=== PATIENT | male | born 1955 | race Caucasian/White ===

== ENCOUNTER 2022-03-19 09:55 | Emergency (ER) | payer MEDICARE, BC, SELFPAY ==
[2022-03-19 10:02] VITALS: BP 227/109; BMI 30.5
--- NOTE | 2022-03-19 10:03 | CTR_ITS ---
PROCEDURE INFORMATION: Exam: CT Abdomen And Pelvis Without Contrast Exam date and time: 03/19/2022 10:49 AM Age: 66 years old Clinical indication: Abdominal pain; Flank; Left; Prior surgery; Surgery type: Gb; Additional info: Concern for kidney stone TECHNIQUE: Imaging protocol: Computed tomography of the abdomen and pelvis without contrast. Radiation optimization: All CT scans at this facility use at least one of these dose optimization techniques: automated exposure control; mA and/or kV adjustment per patient size (includes targeted exams where dose is matched to clinical indication); or iterative reconstruction. COMPARISON: US gall bladder [id number] 05/31/2015 10:37 AM RADIATION DOSE METRICS: Total DLP (mGy-cm): 1965.82 FINDINGS: Diaphragm: Small sliding hiatal hernia. Liver: Fatty liver. Gallbladder and bile ducts: Cholecystectomy. Normal bile ducts. Pancreas: Normal. No ductal dilation. Spleen: Normal. No splenomegaly. Adrenal glands: Normal. No mass. Kidneys and ureters: There is a 4.5 mm calculus in a left upper pole renal calyx. There is minimal left hydronephrosis and hydroureter but no ureteral calculi are seen. This could be due to a recently passed stone. There is a benign-appearing 2 cm cyst in the superior pole of the left kidney. The right kidney is unremarkable. Stomach and bowel: Unremarkable. No obstruction. No mucosal thickening. Appendix: No evidence of appendicitis. Intraperitoneal space: Unremarkable. No free air. No significant fluid collection. Vasculature: There is moderate calcification of the aorta and iliac arteries. There is no abdominal aortic aneurysm. Lymph nodes: Unremarkable. No enlarged lymph nodes. Urinary bladder: Unremarkable as visualized. Reproductive: The prostate is enlarged to a diameter of 5.8 cm. Bones/joints: Unremarkable. No acute fracture. Soft tissues: Unremarkable. CT/CT kidney stone [id number] IMPRESSION: 1. Left nephrolithiasis. 2. There is minimal left hydronephrosis and left hydroureter but no ureteral calculi are seen. This could be due to a recently passed stone. 3. Prostatic hypertrophy. 4. Fatty liver. COMMENTS: Consistent with the [employer]'s Incidental Findings Committee white paper (J Am Sonu Radiol 2018): Any incidental renal lesion less than 1 cm or classified as too small to characterize, or any incidental cystic renal lesion characterized as simple-appearing, is likely benign. No follow-up imaging is recommended for these lesions per consensus recommendations based on imaging criteria.
[2022-03-19 10:08] VITALS: BP 216/102; PULSE 73; RESP 17; O2SAT 100
--- NOTE | 2022-03-19 10:16 | ED_ITS ---
HPI - Abdominal Pain General: Chief Complaint: Abdominal Pain Stated Complaint: abd pain Time Seen by Provider: 03/19/22 10:03 History of Present Illness: Patient comes in with abdominal pain. States that started this morning, left lower quadrant, sharp, waxes and wanes, with episodes of severe pain, radiates into his left groin. Denies fever, diarrhea. States he has been nauseated secondary to the pain. Denies any history of kidney stones. Associated Symptoms: Reports nausea; Denies dysuria, fever(s) and vomiting Review of Systems Const: Denies: fever(s) or body aches Eyes: Denies: change in vision or blurry vision ENMT: Denies: throat pain or odynophagia Card: Denies: chest pain or palpitations Resp: Denies: dyspnea or productive cough GI: Reports: abdominal pain and nausea; Denies: vomiting : Denies: flank pain or dysuria Musc: Denies: neck pain or back pain Skin/Breast: Denies: rash or pruritus Neuro: Denies: headache(s) or numbness in extremities Psych: Denies: anxiety or change in appetite Endo: Denies: polyuria or excessive sweating PFSH ED PFSH: Medical History (Updated 03/19/22 @ 12:01 by Luis Almonte MD) Open-angle glaucoma Social History (Updated 06/24/20 @ 13:57 by Dorothy Pool LPN) Smoking and tobacco status: never smoked Alcohol intake: never Physical Exam Const: COMMON NORMALS: no acute distress, patient oriented x3, healthy appearing and alert HENMT: COMMON NORMALS: normocephalic and atraumatic HEAD & SCALP: normocephalic and atraumatic Eye: COMMON NORMALS: Equal, round and reactive pupils present and EOMs intact bilaterally PUPIL: Yes Equal, round and reactive pupils present Neck/C-Spine: COMMON NORMALS: full ROM and supple Resp: COMMON NORMALS: normal respiratory effort, No retractions and No use of accessory muscles Cardio: COMMON NORMALS: regular rate and regular rhythm RATE: regular rate RHYTHM: regular rhythm GI: COMMON NORMALS: Normal to inspection, nondistended, normoactive bowel sounds present and Soft to palpation PALPATION: Yes Soft to palpation OTHER: Left-sided abdominal tenderness to palpation Back/Pelvis: COMMON NORMALS: thoracic and lumbar spine normal to inspection and no thoracic nor lumbar tenderness Extremity: COMMON NORMALS: normal to inspection and full ROM Neuro: COMMON NORMALS: patient oriented x3 SENSORIUM/ORIENTATION: Yes alert Psych: COMMON NORMALS: mental status grossly normal and cooperative Skin: COMMON NORMALS: no rashes or lesions noted and no wounds GENERAL SKIN EXAM: no rashes or lesions noted Course Vital Signs: Vital signs: Vital Signs Pulse Rate 73 03/19/22 10:08 Respiratory Rate 17 03/19/22 10:08 Blood Pressure 216/102 03/19/22 10:08 Pulse Oximetry 100 03/19/22 10:08 MDM - Abdominal Pain Medical Decision Making Patient comes in with abdominal pain. States that started this morning, left lower quadrant, sharp, waxes and wanes, with episodes of severe pain, radiates into his left groin. Denies fever, diarrhea. States he has been nauseated secondary to the pain. Denies any history of kidney stones. On physical exam he does have some left sided abdominal tenderness to palpation. Will check labs, CT renal, give IV fluids, treat pain with IV Toradol, treat nausea with IV antiemetics, and reassess. On reassessment I talked to the patient about the test results. He states he is feeling much better after the Toradol. Will discharge home at this time with precautions to return for worsening or changing symptoms. Lab Data : 03/19/22 10:40 03/19/22 10:40 Labs/Radiology: Radiology Impressions Abdomen/Pelvis CT 03/19/22 10:03 IMPRESSION: 1. Left nephrolithiasis. 2. There is minimal left hydronephrosis and left hydroureter but no ureteral calculi are seen. This could be due to a recently passed stone. 3. Prostatic hypertrophy. 4. Fatty liver. COMMENTS: Consistent with the [employer]'s Incidental Findings Committee white paper (J Am Sonu Radiol 2018): Any incidental renal lesion less than 1 cm or classified as too small to characterize, or any incidental cystic renal lesion characterized as simple-appearing, is likely benign. No follow-up imaging is recommended for these lesions per consensus recommendations based on imaging criteria. Laboratory Results WBC 10.1 10^3/uL (4.0-10.0) H 03/19/22 10:40 RBC 5.49 10^6/uL (4.1-5.3) H 03/19/22 10:40 Hgb 16.6 g/dL (11.7-16.6) 03/19/22 10:40 Hct 48.6 % (42.0-52.0) 03/19/22 10:40 MCV 88.5 fl (80-94) 03/19/22 10:40 MCH 30.2 pg (28.0-34.0) 03/19/22 10:40 MCHC 34.2 g/dL (30.0-36.0) 03/19/22 10:40 RDW 12.8 % (12.1-15.1) 03/19/22 10:40 Plt Count 242 10^3/cmm (130-400) 03/19/22 10:40 MPV 10.5 fL (7.4-10.4) H 03/19/22 10:40 Neut % (Auto) 85.5 % 03/19/22 10:40 Lymph % (Auto) 7.1 % 03/19/22 10:40 [place] % (Auto) 6.6 % 03/19/22 10:40 Eos % (Auto) 0.1 % 03/19/22 10:40 Baso % (Auto) 0.5 % 03/19/22 10:40 Neut # (Auto) 8.61 10^3/uL (1.8-7.7) H 03/19/22 10:40 Lymph # (Auto) 0.7 10^3/uL (0.8-4.8) L 03/19/22 10:40 [place] # (Auto) 0.7 10^3/uL (0.2-0.9) 03/19/22 10:40 Eos # (Auto) 0.0 10^3/uL (0.0-0.8) 03/19/22 10:40 Baso # (Auto) 0.1 10^3/uL (0.0-0.1) 03/19/22 10:40 Nucleated RBC % (auto) 0 % 03/19/22 10:40 Nucleated RBCs # 0.0 /100WBC 03/19/22 10:40 Sodium 136 mmol/L (136-145) 03/19/22 10:40 Potassium 4.3 mmol/L (3.5-5.1) 03/19/22 10:40 Chloride 101 mmol/L (98-107) 03/19/22 10:40 Carbon Dioxide 25 mmol/L (22-29) 03/19/22 10:40 Anion Gap 14.3 (5-19) 03/19/22 10:40 BUN 29 mg/dL (8-23) H 03/19/22 10:40 Creatinine 1.3 mg/dL (0.7-1.2) H 03/19/22 10:40 GFR Calculation 55.2 mL/min (90-130) L 03/19/22 10:40 Glucose 135 mg/dL (65-115) H 03/19/22 10:40 Calculated Osmolality 290 mOsm/kg (285-295) 03/19/22 10:40 Calcium 8.8 mg/dL (8.5-10.5) 03/19/22 10:40 Total Bilirubin 1.1 mg/dL (0.15-1.2) 03/19/22 10:40 AST 21 U/L (0-40) 03/19/22 10:40 ALT 33 U/L (0-41) 03/19/22 10:40 Alkaline Phosphatase 85 IU/L (40-130) 03/19/22 10:40 Total Protein 6.6 g/dL (6.6-8.7) 03/19/22 10:40 Albumin 4.1 g/dL (3.5-5.2) 03/19/22 10:40 Globulin 2.5 g/dL (1.3-4.6) 03/19/22 10:40 Urine Color Yellow (Yellow) 03/19/22 11:10 Urine Appearance Clear (CLEAR) 03/19/22 11:10 Urine pH 5 (5-7) 03/19/22 11:10 Ur Specific [place] 1.015 (1.005-1.030) 03/19/22 11:10 Urine Protein Neg (Negative) 03/19/22 11:10 Urine Glucose (UA) Norm (Normal) 03/19/22 11:10 Urine Ketones Negative (Negative) 03/19/22 11:10 Urine Blood 3+ (Negative) H 03/19/22 11:10 Urine Nitrate Negative (Negative) 03/19/22 11:10 Urine Bilirubin Neg (Negative) 03/19/22 11:10 Urine Urobilinogen Norm mg/dL (Negative) 03/19/22 11:10 Ur Leukocyte Esterase Negative (Negative) 03/19/22 11:10 Amorphous Sediment Not Reportable 03/19/22 11:10 Discharge Plan Discharge Patient Disposition: Home Clinical Impression: Kidney stone Condition: Stable Prescriptions: New hydrocodone-acetaminophen 5-325 mg tablet 1 tab PO Q6H PRN (Reason: pain) Qty: 10 0RF No Action [place] 0.01 % drops See Rx Instructions .ROUTE .COMPLEX Qty: 5 10RF Dose Instruction: USE 1 DROP IN EYE EVERY DAY DIRECTED Rx Instructions: USE 1 DROP IN EYE EVERY DAY DIRECTED [place] 0.2-0.5 % drops See Rx Instructions .ROUTE .COMPLEX Qty: 15 10RF Dose Instruction: USE 1 DROP IN EYE TWICE DAILY DIRECTED Rx Instructions: USE 1 DROP IN EYE TWICE DAILY DIRECTED Discharge Orders: Discharge ED (Routine); Ordered 03/19/22 Ordered By: Luis Almonte Referrals: Shiva Arguello MD [Primary Care Provider] - Patient Instructions: Kidney Stones Coding Level of Care Code ED [employer] Division Manager for Chg Fwd Exam Comprehensive
[2022-03-19] MEDS: ondansetron 2 mg/ML SDV 2 mL 4 MG IVP (10:18)
[2022-03-19] MEDS: ketorolac 30 mg/mL INJ IVP (10:19)
[2022-03-19] MEDS: sodium chloride 0.9% 1,000 ML 999 ML IV (10:21)
[2022-03-19 10:38] VITALS: BP 188/106; PULSE 83; RESP 16; O2SAT 99
[2022-03-19 10:46] LABS: Basophils # 0.1 10^3/uL (0.0-0.1); Basophils % 0.5 %; Eosinophils % 0.1 %; Hematocrit 48.6 % (42.0-52.0); Hemoglobin 16.6 g/dL (11.7-16.6); Lymphocytes # 0.7 10^3/uL (0.8-4.8); Lymphocytes % 7.1 %; Mean Corpuscular HGB Conc 34.2 g/dL (30.0-36.0); Mean Corpuscular Hemoglobin 30.2 pg (28.0-34.0); Mean Corpuscular Volume 88.5 fl (80-94); Mean Platelet Volume 10.5 fL (7.4-10.4); Monocytes # 0.7 10^3/uL (0.2-0.9); Monocytes % 6.6 %; Neutrophils # 8.61 10^3/uL (1.8-7.7); Neutrophils % 85.5 %; Nucleated Red Blood Cells % 0 %; Platelet Count 242 10^3/cmm (130-400); Red Blood Count 5.49 10^6/uL (4.1-5.3); Red Cell Distribution Width 12.8 % (12.1-15.1); White Blood Count 10.1 10^3/uL (4.0-10.0)
--- NOTE | 2022-03-19 11:04 | ECG_ITS ---
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 Measurements Intervals [place] Rate: 73 P: 72 SD: 190 QRS: 71 QRSD: 88 T: 47 QT: 373 QTc: 413 Interpretive Statements SINUS RHYTHM Compared to ECG 05/31/2015 10:29:04 No significant changes Electronically Signed On 03-19-2022 17:00:17 CDT by Richard Kemp M.D. [email or web address] I'm [email or web address] Energy [email or web address] [id number]
[2022-03-19 11:05] LABS: Alanine Aminotransferase 33 U/L (0-41); Albumin Level 4.1 g/dL (3.5-5.2); Alkaline Phosphatase 85 IU/L (40-130); Anion Gap 14.3 (5-19); Aspartate Amino Transferase 21 U/L (0-40); Blood Urea Nitrogen 29 mg/dL (8-23); Calcium 8.8 mg/dL (8.5-10.5); Carbon Dioxide 25 mmol/L (22-29); Chloride 101 mmol/L (98-107); Globulin 2.5 g/dL (1.3-4.6); Glomerular Filtration Rate 55.2 mL/min (90-130); Glucose 135 mg/dL (65-115); Osmolality Calculated 290 mOsm/kg (285-295); Potassium 4.3 mmol/L (3.5-5.1); Sodium 136 mmol/L (136-145); Total Bilirubin 1.1 mg/dL (0.15-1.2); Total Protein 6.6 g/dL (6.6-8.7)
[2022-03-19 11:08] VITALS: BP 193/97; PULSE 83; RESP 16; O2SAT 99
[2022-03-19 11:38] VITALS: BP 184/102; PULSE 72; RESP 24; O2SAT 98
[2022-03-19 11:59] LABS: Bilirubin Urine Neg (Negative); Blood Urine 3+ (Negative); Glucose Urine UA Norm (Normal); Ketones Urine Negative (Negative); Nitrate Urine Negative (Negative); Protein Urine Neg (Negative); Specific Gravity, Urine 1.015 (1.005-1.030); Urine Appearance Clear (CLEAR); Urine Color Yellow (Yellow); pH Urine 5 (5-7)
[2022-03-19 12:00] LABS: Add Urine Microscopic? YES; Leukocyte Esterase Urine Negative (Negative); Urobilinogen Urine Norm (Negative)
[2022-03-19 12:05] LABS: WBC Urine 0-4 /hpf (0-5)
[2022-03-19 12:06] LABS: Add Urine Culture? No
== END 2022-03-19 12:21 | disposition home or self-care (01) ==
PROVIDERS: Emergency Provider Emergency Medicine; PCP Surgery
DX: N20.0 Calculus of kidney (principal)
CPT/HCPCS: 74176; 80053; 81001; 85025; 93005; 96374; 96375; 99284; J1885; J2405; J7030

== ENCOUNTER → 2022-03-22 07:46 | Outpatient (BNVA) | payer MEDICARE, BC, SELFPAY | PROVIDERS: PCP Surgery; Visit Provider Nurse Practitioner Family | DX: Z53.8 Procedure and treatment not carried out for other reasons (principal) | CPT/HCPCS: 82365; 88300 ==

== ENCOUNTER → 2025-02-06 09:03 | Outpatient (BNVA) | payer MEDICARE, BC, SELFPAY | PROVIDERS: PCP Surgery; Visit Provider Family Medicine | DX: Z00.00 Encounter for general adult medical examination without abnormal findings (principal); E03.9 Hypothyroidism, unspecified; I10 Essential (primary) hypertension; R09.89 Other specified symptoms and signs involving the circulatory and respiratory systems | CPT/HCPCS: 80053; 80061; 82306; 83036; 83090; 83735; 84443; 85025 ==